=== PATIENT | male | born 1945 | race Caucasian/White ===

== ENCOUNTER 2019-01-24 06:25 | Emergency (ER) | payer MEDICAID ==
[~2019-01-24] VITALS: Ht 167.6 cm; Wt 60.3 kg
[2019-01-24 06:25] VITALS: BP_SYST 126
--- NOTE | 2019-01-24 06:30 | NUR ---
Patient to ER bed 05 to gown for evaluation. Side rails up.
--- NOTE | 2019-01-24 06:34 | NUR ---
ER Dr. Galeano at bedside examining patient.
--- NOTE | 2019-01-24 06:38 | NUR ---
Patient AOx4, brought to ER via ambulance for laceration to occiput s/p fall. Patient was at [facility] and fell back, hitting occiput on a machine. No KO. No active bleeding noted. Patient fall was prior to receiving dialysis. Patient uses a walker. AV shunt to SRAVAN and Malcolm cath to right upper chest. Patient denies pain or dizziness. No other symptoms or complaints.
--- NOTE | 2019-01-24 06:38 | NUR ---
Farrah xiong in ED - 01/24/19 at 0648 by SDEDBK LOGAN Galeano at [facility] for medical evaluation.
[2019-01-24] MEDS ORDERED: LABE200T28 PO (06:57)
[2019-01-24] MEDS ORDERED: FAMO1TAB29 PO (06:58)
[2019-01-24] MEDS ORDERED: NOR10 PO (06:58)
[2019-01-24] MEDS ORDERED: LIDOINT TP (06:59)
[2019-01-24] MEDS ORDERED: CALC667T5 PO (07:00)
[2019-01-24] MEDS ORDERED: FOLI-43 PO (07:01)
[2019-01-24] MEDS ORDERED: ERGO500020 PO (07:01)
[2019-01-24] MEDS ORDERED: NEPH PO (07:03)
--- NOTE | 2019-01-24 07:23 | NUR ---
PATIENT LEAVING TO CT BY MICHAEL IN STABLE CONDITION.
--- NOTE | 2019-01-24 07:40 | NUR ---
PATIENT BACK FROM CT IN STABLE CONDITION.
[2019-01-24 08:07] LABS: BASOPHILS # (AUTO) 0.1 K/uL (0.0-0.2); BASOPHILS % (AUTO) 0.8 % (0.0-2.0); EOSINOPHILS # (AUTO) 0.2 K/uL (0.0-0.4); EOSINOPHILS % (AUTO) 3.3 % (0.0-4.0); HEMATOCRIT 33.1 % (36-54); HEMOGLOBIN 10.8 g/dL (14.0-18.0); LYMPHOCYTES # (AUTO) 0.9 K/uL (1.0-5.5); LYMPHOCYTES % (AUTO) 14.3 % (20.5-51.5); MEAN CORPUSCULAR HEMOGLOBIN 31 pg (27-31); MEAN CORPUSCULAR HGB CONC 33 % (32-36); MEAN CORPUSCULAR VOLUME 95 fL (79.0-98.0); MONOCYTES # (AUTO) 0.6 K/uL (0.0-1.0); MONOCYTES % (AUTO) 9.5 % (1.7-9.3); NEUTROPHILS # (AUTO) 4.6 K/uL (1.8-7.7); NEUTROPHILS % (AUTO) 72.1 % (40.0-70.0); PLATELET COUNT (AUTO) 115 K/uL (130-430); RED BLOOD CELL COUNT(AUTO) 3.49 MIL/uL (4.2-6.2); RED CELL DISTRIBUTION WIDTH 15.6 % (9.0-15.0); WHITE BLOOD COUNT (AUTO) 6.4 K/uL (4.8-10.8)
[2019-01-24 08:29] LABS: ALANINE AMINOTRANSFERASE 15 U/L (12-78); ALBUMIN 3.2 g/dL (3.4-4.8); ANION GAP 14 (5-15); ASPARTATE AMINOTRANSFERASE 12 U/L (10-37); CALCIUM 7.9 mg/dL (8.4-11.0); CHLORIDE 96 mmol/L (98-107); CREATININE 6.53 mg/dL (0.55-1.30); GLUCOSE 144 mg/dL (70-99); POTASSIUM 4.7 mmol/L (3.5-5.1); SODIUM SERUM 133 mmol/L (136-145); TOTAL BILIRUBIN 0.5 mg/dL (0.0-1.0); UREA NITROGEN, BLOOD 35 mg/dL (8-21)
[2019-01-24 10:08] VITALS: BP_SYST 142
--- NOTE | 2019-01-24 10:08 | NUR ---
Patient given written and verbal discharge instructions and verbalizes understanding. ER MD discussed with patient the results and treatment provided. Patient in stable condition. ID arm band removed. NO Rx given. Patient educated on pain management and to follow up with PMD. Pain Scale 0/10. Opportunity for questions provided and answered. Medication side effect fact sheet provided.
== END 2019-01-24 10:08 | disposition home or self-care (01) ==
LOC: SED 06:25
DX: S00.01XA Abrasion of scalp, initial encounter (principal); Z79.899 Other long term (current) drug therapy; W01.0XXA Fall on same level from slipping, tripping and stumbling without subsequent striking against object, initial encounter; Y93.89 Activity, other specified; Y92.89 Other specified places as the place of occurrence of the external cause; Y99.8 Other external cause status
CPT/HCPCS: 36415; 70450-TC; 72125-TC; 80053; 85025; 99284